=== PATIENT | male | born 1975 | race Two or more races ===

== ENCOUNTER 2023-09-27 22:22 | Emergency (ER) | payer MEDICAID, OTHER ==
[~2023-09-27] VITALS: Ht 175.3 cm; Wt 115.7 kg
[2023-09-27 23:02] LABS: BASOPHILS % (AUTO) 0.4 % (0.0-2.0); EOSINOPHILS # (AUTO) 0.4 K/uL (0.0-0.7); HEMATOCRIT 41 % (39-51); LYMPHOCYTES # (AUTO) 3.8 K/uL (0.8-4.8); LYMPHOCYTES % (AUTO) 30.9 % (20.0-44.0); MEAN CORPUSCULAR HEMOGLOBIN 28 PG (26.0-33.0); MEAN CORPUSCULAR HGB CONC 34 g/dl (31.0-36.0); MEAN CORPUSCULAR VOLUME 82 fL (80-96); MONOCYTES # (AUTO) 1.3 K/uL (0.1-1.30); MONOCYTES % (AUTO) 10.3 % (2.0-12.0); NEUTROPHILS # (AUTO) 6.9 K/uL (1.8-8.9); NEUTROPHILS % (AUTO) 55.4 % (43.0-81.0); PLATELET COUNT (AUTO) 369 K/uL (150-450); RED BLOOD CELL COUNT(AUTO) 5.06 MIL/uL (4.5-6.0); RED CELL DISTRIBUTION WIDTH 13.9 % (11.5-15.0); WHITE BLOOD COUNT (AUTO) 12.4 K/uL (4.3-11.0)
[2023-09-27] MEDS ORDERED: hydrALAZINE HCL IV 20 MG VIAL ONE (23:10)
[2023-09-27] MEDS: hydrALAZINE HCL IV 20 MG VIAL IV ONE (23:14)
[2023-09-27 23:16] LABS: CALCIUM, SERUM 9.3 mg/dL (8.5-10.1); CARBON DIOXIDE 30 mmol/L (21-32); CHLORIDE 102 mmol/L (98-107); CREATININE 0.9 mg/dL (0.6-1.3); GLUCOSE 98 mg/dL (74-106); POTASSIUM 2.9 mmol/L (3.5-5.1); SODIUM SERUM 140 mmol/L (136-145); UREA NITROGEN, BLOOD 16 mg/dL (7-18)
[2023-09-27 23:29] LABS: NT-PRO BNP 250 pg/mL (0-125)
[2023-09-28] MEDS ORDERED: POTASSIUM CHLORIDE 20 MEQ TAB.PRT.SR PO ONE (00:32)
[2023-09-28] MEDS: POTASSIUM CHLORIDE 20 MEQ TAB.PRT.SR PO ONE (02:25)
[2023-09-28] MEDS: METOCLOPRAMIDE HCL 10 MG/2 ML VIAL IV ONE (02:41)
[2023-09-28] MEDS: SUMATRIPTAN SUCCINATE 6 MG/0.5 ML VIAL SQ ONE (02:41)
[2023-09-28] MEDS: ACETAMINOPHEN 325 MG TABLET PO ONE (02:41)
[2023-09-28 02:43] VITALS: BP 147/82; TEMP 98.8; O2SAT 99
== END 2023-09-28 02:43 | disposition home or self-care (01) ==
LOC: ER 22:24
DX: I10 Essential (primary) hypertension (principal); R07.89 Other chest pain; R51.9 Headache, unspecified; F17.200 Nicotine dependence, unspecified, uncomplicated
CPT/HCPCS: 99291; 96374; 70450; 93005 ×2; 71045; 85025; 80048; 36415 ×2; 84484 ×2; 83880; J0360